=== PATIENT | female | born 1980 | race Two or more races ===

== ENCOUNTER 2024-08-17 14:41 | Emergency (ER) | payer OTHER ==
[~2024-08-17] VITALS: Ht 162.6 cm; Wt 81.6 kg
[2024-08-17 15:06] VITALS: BP 111/76; O2SAT 96
[2024-08-17] MEDS ORDERED: ATORVASTATIN CA20 MG PO (15:10)
[2024-08-17] MEDS ORDERED: METFORMIN HCL1000 M2 (15:10)
[2024-08-17] MEDS ORDERED: COZAAR25 MG PO (15:10)
[2024-08-17] MEDS ORDERED: OMEPRAZOLE-BIC1 EAC1 (15:10)
[2024-08-17] MEDS ORDERED: SYNTHROID50 MCG PO (15:11)
[2024-08-17] MEDS ORDERED: WELLBUTRIN XL300 MG PO (15:11)
[2024-08-17] MEDS ORDERED: MIRTAZAPINE7.5 MG (15:11)
[2024-08-17] MEDS ORDERED: NORVASC2.5 M1 PO (15:12)
[2024-08-17] MEDS ORDERED: MYSOLINE50 MG (15:12)
[2024-08-17] MEDS ORDERED: GUAIFENESIN/DEXTROMETHORPHAN 10ML BLIST.PACK PO ONE (16:30)
[2024-08-17] MEDS ORDERED: ACETAMINOPHEN 500 MG GEL..CAP PO ONE (16:30)
[2024-08-17 17:05] LABS: HEMATOCRIT 43.4 % (36.0-45.00); HEMOGLOBIN 14.7 g/dL (12.0-15.00); MEAN CELL VOLUME 91.7 fL (80.00-100.00); MEAN CORPUSCULAR HEMOGLOBIN 31.1 pg (27.00-32.0); MEAN CORPUSCULAR HGB CONC 33.9 g/dl (32.0-36.0); PLATELET COUNT 326 K/uL (150-450); RED BLOOD COUNT 4.73 M/uL (4.00-6.00); RED CELL DISTRIBUTION WIDTH 14.7 % (11.5-14.5)
[2024-08-17] MEDS ORDERED: OSEL75CA PO (18:10)
[2024-08-17] MEDS ORDERED: QC TUSSIN DM L118 ML PO (18:10)
== END 2024-08-17 18:36 ==
LOC: ER 14:43
PROVIDERS: Nurse Practitioner Family
DX: J00 Acute nasopharyngitis [common cold] (principal); Z88.6 Allergy status to analgesic agent; I10 Essential (primary) hypertension; E03.8 Other specified hypothyroidism; K29.70 Gastritis, unspecified, without bleeding; E78.49 Other hyperlipidemia; F41.8 Other specified anxiety disorders; Z20.822 Contact with and (suspected) exposure to COVID-19